=== PATIENT | male | born 1965 | race Caucasian/White ===

== ENCOUNTER 2018-09-02 09:53 | Outpatient (CLI) | payer OTHER, SELFPAY ==
[2018-09-02 13:02] LABS: Anion Gap 8.6 mmol/L (3-11); BUN 13 mg/dL (7-18); CO2 29.4 mmol/L (21.0-32.0); CREATININE 0.73 mg/dL (0.70-1.30); Calcium 9.1 mg/dL (8.5-10.1); Chloride 103 mmol/L (98-107); Glucose 93 mg/dL (70-100); Potassium 4.9 mmol/L (3.5-5.1); Sodium 141 mmol/L (136-145)
[2018-09-02 13:04] LABS: HCT 44.1 % (40.0-50.0); Mean Corpuscular Hemoglobin 29.7 pg (27.0-33.0); Mean Corpuscular Volume 87.3 fL (80-95); Mean Platelet Volume 10.2 fL (8.0-11.0); Platelet Count 193 x1000/uL (130-400); RBC 5.05 m/cumm (4.50-6.00); RBC Distribution Width 12.6 % (11.8-14.1); White Blood Cell Count 4.17 k/cumm (4.4-10.8)
[2018-09-02 14:26] LABS: Calculated LDL 137; Cholesterol 203 mg/dL (50-200); HDL Cholesterol 47 mg/dL (40-60); Triglyceride 98 mg/dL (30-150)
== END 2018-09-02 10:13 ==
PROVIDERS: PCP Family Medicine; Visit Provider Family Medicine
DX: I10 Essential (primary) hypertension (principal)
CPT/HCPCS: 36415; 80048; 80061; 83721; 85027

== ENCOUNTER 2019-09-04 22:01 | Outpatient (REF) | payer OTHER, SELFPAY ==
[2019-09-04 21:53] LABS: Anion Gap 6.7 mmol/L (3-11); BUN 13 mg/dL (7-18); CO2 30.3 mmol/L (21.0-32.0); CREATININE 0.83 mg/dL (0.70-1.30); Calcium 8.9 mg/dL (8.5-10.1); Chloride 102 mmol/L (98-107); Glucose 95 mg/dL (74-106); Potassium 4.4 mmol/L (3.5-5.1); Sodium 139 mmol/L (136-145)
== END 2019-09-04 22:21 ==
LOC: LBN 22:01
PROVIDERS: PCP Family Medicine; Visit Provider Family Medicine
DX: I10 Essential (primary) hypertension (principal)
CPT/HCPCS: 80048

== ENCOUNTER 2019-09-08 07:55 | Outpatient (CLI) | payer OTHER, SELFPAY ==
[2019-09-11 02:14] LABS: SARS-CoV-2 RNA Undetected (Undetected); SARS-CoV-2 Specimen Source Nasopharynx
== END 2019-09-08 08:15 ==
PROVIDERS: PCP Family Medicine; Visit Provider Family Medicine
DX: Z11.59 Encounter for screening for other viral diseases (principal)
CPT/HCPCS: U0003

== ENCOUNTER 2019-11-09 06:51 | Day surgery (SDC) | payer OTHER, SELFPAY ==
--- NOTE | 2019-11-09 06:54 | PDOC.DSDIS_ITS ---
Discharge Plan Disposition Patient Disposition: HOME Condition: Good Discharge Details Reason For Visit: Colonoscopy Attending Provider: Soledad Bobo Primary Care Provider: Everardo Merida Home Meds and New Rx's Prescriptions: Continued loratadine 10 mg tablet 10 mg PO DAILY PRNRF: 0 lisinopril 10 mg tablet 10 mg PO DAILY Qty: 90 RF: 3 Discontinued polyethylene glycol 3350 17 gram/dose powder 238 g PO ONCE Qty: 238 RF: 0 bisacodyl [Dulcolax (bisacodyl)] 5 mg tablet,delayed release (DR/EC) 5 mg PO ONCE Qty: 4 RF: 0 Discharge Instructions Instructions: Diverticulosis (DC) Additional Instructions: Findings: mild diverticulosis ? a small benign polyp Follow up: next colonoscopy will depend on the pathology result Please call if you develop: fevers >101.5 Nausea or Vomiting Abdominal pain that is not transient DAY SURGERY UNIT POST ENDOSCOPY INSTRUCTIONS 1. Because there will be medication in your system for the next 24 hours, you may feel a little sleepy. Your coordination will be affected. Therefore: a. Do not drive or operate dangerous equipment for 24 hours. b. Do not drink alcohol beverages for 24 hours (not even beer). c. Plan to go home and rest for the day. 2. Generally there are no restrictions on your activity after a day or so has gone by, but you may feel a bit fatigued for a few days. 3 After you arrive home you may have a light meal and return to a normal diet as you can tolerate it without feeling sick to your stomach. 4. After surgery, you may feel pain or discomfort. This should be only transien t, but if it persists please contact your doctor. 5. If there are any questions regarding the findings of your procedure, please feel free to contact your doctor. 6. If you are unable to contact your doctor with a problem, contact the hospital at [phone]. 7. Continue all your regular medications unless directed otherwise. I understand the above instructions and have no questions. Signature of Patient or Responsible Adult Escort Date/Time Name of Responsible Adult Escort Signature of Nurse Date/Time Activity:: Activity as Tolerated Diet:: high fiber diet Discharge Orders Discharge Orders: Discharge Order (Routine); Ordered 11/09/19 Ordered By: Soledad Bobo
--- NOTE | 2019-11-09 06:54 | COLE_ITS ---
Date of service: 11/09/19 Time of Service: 08:06 Colonoscopy Report Date of procedure: 11/09/19 Pre-op diagnosis general: Colon Cancer Screening Post-op diagnosis procedure note: other (mild diverticulosis) Procedure: Colonoscopy with polypectomy Surgeon: Soledad Bobo Anesthesia proc note operative: other (General/ASA 2/Marina Thurman CRNA) Estimated blood loss (mL): 2 Pathology: other (Transverse colon polyp) Complications: None Disposition: same day Indications: The patient is here for Colonoscopy pre-op. He has no family history of colon cancer. He has not had any bowel habit changes. -Discussed colonoscopy bowel prep as well as the procedure. Discussed possible complications of the procedure to include bleeding, pain, perforation, missed small lesion/polyp, sore throat, aspiration and adverse reaction to the medications. Questions were answered to patient?s satisfaction. No guarantees were implied or given. Prep: Miralax/Dulcolax Procedure Start Time: 08:06 Procedure End Time: 08:38 Retraction Time: 16 minutes Findings: mild diverticulosis one ? polyp in the transverse colon Procedure Description: After informed consent was obtained the patient was taken to the procedure room and placed in a left decubitous position. Monitors were applied and a time out was done. The patients name, date of , procedure, allergies to medications and metal in their body was reviewed. The patient was then sedated. Once sedated and comfortable a rectal exam was done. External exam was normal. Internal exam revealed a normal sphincter tone and no palpable masses. The prostate felt slightly enlarged. Normal sulcus. No masses. The scope was then introduced and retro-flexed. No internal hemorrhoids were identified. The scope was then advanced to the cecum without difficulty. The ileocecal valve and appendiceal orifice were identified. The prep was good. The scope was then slowly retracted over 16 minutes back into the rectum. There was a possible small Polyp in the Transverse colon. This was removed with forceps. The scope was removed and the patient was woken up and taken back to Same day surgery in stable condition. The patient tolerated the procedure well and there were no immediate complicat ions. Follow up: Follow up will depend on final pathology.
[2019-11-09 07:10] VITALS: BP 140/92; PULSE 73; RESP 14; TEMP 36.5; O2SAT 96
[2019-11-09] MEDS: Lactated Ringers 1,000 ML 80 ML IV (07:30)
--- NOTE | 2019-11-09 08:27 | BOWEL_PTH ---
PATIENT: Ranjith Laureano LOC: [facility] U#:[id number] AGE/SX: 53/M ROOM: RE11/09/[address]: Soledad Bobo MD : [id number] BED: DIS: 11/09/2019 SPEC #: [id number] RECD: 11/09/19 11:46 STATUS: JEANA REQ #: [id number] ALAINA: 11/09/19 08:[address]: Soledad Bobo DEPT: Surgical Specimen RECD BY: Ana Paula Shepard ENTERED: 11/09/19 11:47 SP TYPE: Bowel OTHR DR: Everardo Merida MD Tissues: 1 - BIOPSY BOWEL Procedures: GROSS AND MICRO LEVEL 4 Comments: [id number]
[2019-11-09 09:17] VITALS: BP 137/85; PULSE 57; RESP 16; TEMP 36.1; O2SAT 95
== END 2019-11-09 09:36 | disposition home or self-care (01) ==
PROVIDERS: PCP Family Medicine; Visit Provider Surgery
PROC: 0DJD8ZZ Inspection of Lower Intestinal Tract, Via Natural or Artificial Opening Endoscopic (ICD-10-PCS; CPT 45378; principal; 2019-11-09 08:00)
DX: Z12.11 Encounter for screening for malignant neoplasm of colon (principal); K63.5 Polyp of colon; K57.30 Diverticulosis of large intestine without perforation or abscess without bleeding; I10 Essential (primary) hypertension
CPT/HCPCS: 45380; 88305; J2001

== ENCOUNTER 2020-09-16 01:10 | Outpatient (CLI) | payer OTHER, SELFPAY ==
[2020-09-16 13:29] LABS: Hemoglobin A1C 5.6 % (<5.7)
[2020-09-16 14:06] LABS: ALT 34 U/L (16-63); AST 21 U/L (15-37); Alkaline Phosphatase 85 U/L (46-116); Anion Gap 8.5 mmol/L (3-11); BUN 12 mg/dL (7-18); Bilirubin, Total 0.5 mg/dL (0.2-1.0); CO2 28.5 mmol/L (21.0-32.0); CREATININE 0.9 mg/dL (0.70-1.30); Calcium 9.1 mg/dL (8.5-10.1); Chloride 103 mmol/L (98-107); Glucose 90 mg/dL (74-106); Potassium 4.7 mmol/L (3.5-5.1); Sodium 140 mmol/L (136-145); Total Protein 7.1 g/dL (6.4-8.2)
[2020-09-16 19:34] LABS: Calculated LDL 132 mg/dL (<100); Cholesterol 194 mg/dL (<200); HDL Cholesterol 42 mg/dL (40-60); Triglyceride 103 mg/dL (<150)
== END 2020-09-16 01:11 | disposition home or self-care (01) ==
LOC: LOS 01:10
PROVIDERS: PCP Nurse Practitioner Family; Visit Provider Nurse Practitioner Family
DX: Z00.00 Encounter for general adult medical examination without abnormal findings (principal); Z13.228 Encounter for screening for other metabolic disorders; Z13.1 Encounter for screening for diabetes mellitus; Z13.220 Encounter for screening for lipoid disorders
CPT/HCPCS: 36415; 80053; 80061; 83036

== ENCOUNTER 2021-09-07 02:32 | Outpatient (CLI) | payer OTHER, SELFPAY ==
[2021-09-07 13:54] LABS: CREATININE 0.8 mg/dL (0.70-1.30)
== END 2021-09-07 02:33 | disposition home or self-care (01) ==
LOC: LOS 02:32
PROVIDERS: PCP Nurse Practitioner Family; Visit Provider Nurse Practitioner Family
DX: I10 Essential (primary) hypertension (principal)
CPT/HCPCS: 36415; 82565

== ENCOUNTER 2022-11-21 03:24 | Outpatient (CLI) | payer OTHER, SELFPAY ==
[2022-11-21 12:47] LABS: CREATININE 0.9 mg/dL (0.70-1.30); Estimated GFR 99.62 (mL/min/1.73m2); Potassium 4.2 mmol/L (3.5-5.1)
== END 2022-11-21 03:25 | disposition home or self-care (01) ==
LOC: LOS 03:24
PROVIDERS: PCP Nurse Practitioner Family; Visit Provider Nurse Practitioner Family
DX: I10 Essential (primary) hypertension (principal)
CPT/HCPCS: 36415; 82565; 84132

== ENCOUNTER 2023-09-05 01:23 | Outpatient (CLI) | payer OTHER, SELFPAY ==
[2023-09-05 12:43] LABS: CREATININE 0.8 mg/dL (0.70-1.30); Calculated LDL 155 mg/dL (<100); Cholesterol 223 mg/dL (<200); Estimated GFR 102.58 (mL/min/1.73m2); HDL Cholesterol 52 mg/dL (40-60); Potassium 4.1 mmol/L (3.5-5.1); Triglyceride 80 mg/dL (<150)
== END 2023-09-05 01:24 | disposition home or self-care (01) ==
LOC: LOS 01:23
PROVIDERS: PCP Family Medicine; Visit Provider Family Medicine
DX: I10 Essential (primary) hypertension (principal); E78.5 Hyperlipidemia, unspecified
CPT/HCPCS: 36415; 80061; 82565; 84132

== ENCOUNTER 2024-09-15 03:13 | Outpatient (CLI) | payer OTHER, SELFPAY ==
[2024-09-15 13:00] LABS: Calculated LDL 111 mg/dL (<100); Cholesterol 167 mg/dL (<200); Estimated GFR 101.95 (mL/min/1.73m2); Glucose 90 mg/dL (74-106); HDL Cholesterol 45 mg/dL (>or=40); Potassium 4.1 mmol/L (3.5-5.1); Triglyceride 59 mg/dL (<150)
[2024-09-16 09:41] LABS: PSA, Screening 2.4 ng/mL (<=3.5)
== END 2024-09-15 03:14 | disposition home or self-care (01) ==
LOC: LOS 03:13
PROVIDERS: PCP Family Medicine; Visit Provider Family Medicine
DX: I10 Essential (primary) hypertension (principal); E78.5 Hyperlipidemia, unspecified; R73.9 Hyperglycemia, unspecified; Z12.5 Encounter for screening for malignant neoplasm of prostate
CPT/HCPCS: 36415; 80061; 82947; 84153; 82565; 84132